=== PATIENT | male | born 1940 | race Caucasian/White ===

== ENCOUNTER → 2017-03-22 | Outpatient (CLI) | payer MEDICARE, BC ==
[~2017-03-22] MED LIST: ASPI1TAB7 PO; BENA25TA3 PO; CITRPOW PO; CITRPOW3 PO; CLEAPOW6 PO; DICL1GEL TOP; DICL1GEL TOPICAL; FINA5TAB2 PO; GABA300C3 PO; GABA300C5 PO; HYDR12.56 PO; HYDR12.57 PO; HYDRO2.5%T TOP; LAC-12LO3 TOPICAL; LANSO15 PO; LATA0.002 EACH EYE; LEVO88TA2 PO; LISI40TA PO; MEDI220T PO; METH750T PO; METH750T2 PO; MIRA33504 PO; MORP1TAB24 PO; MORP60TA20 PO; NEXI40CA PO; NYSTCRE TOP; NYSTCRE29 TOPICAL; OXYC-395 PO; PERC7.5T13 PO; PERI8.6T PO; PREV15CA15 PO; SENN1TAB11 PO; SIMV20TA PO; SYNT88TA PO; TAMS0.4C4 PO; TAMS0.4C67 PO; VENL150C39 PO; VENL75 PO; [UNRECOGNIZED DRUG - CODE] TOP
[2017-03-22 12:13] LABS: AUTOMATED NEUTROPHIL # 2.9 TH/MM3 (1.8-7.7); BASOPHIL % 0.8 % (0.0-2.0); EOSINOPHIL # 0.1 TH/MM3 (0-0.4); HEMATOCRIT 39.5 % (39.0-51.0); HEMO FLAGS DIFF FINAL; LYMPH % 19.9 % (9.0-44.0); LYMPHOCYTE # 0.8 TH/MM3 (1.0-4.8); MEAN CELL VOLUME 90.7 FL (80.0-100.0); MEAN CORPUSCULAR HEMOGLOBIN 30.6 PG (27.0-34.0); MEAN CORPUSCULAR HGB CONC 33.7 % (32.0-36.0); MONO % 7.4 % (0.0-8.0); NEUT % 69.9 % (16.0-70.0); PLATELET COUNT 197 TH/MM3 (150-450); RED BLOOD COUNT 4.36 MIL/MM3 (4.50-5.90); RED CELL DISTRIBUTION WIDTH 13.8 % (11.6-17.2); WHITE BLOOD COUNT 4.2 TH/MM3 (4.0-11.0)
[2017-03-22 12:50] LABS: BLOOD, URINE NEG (NEG); COMMENT (UR) CULT NOT INDICATED; CULTURE IF INDICATED CULT NOT INDICATED; GLUCOSE,URINE NEG (NEG); KETONE, URINE NEG (NEG); MUCUS URINE FEW /lpf (OCC); NITRITE,URINE NEG (NEG); PH, URINE 6.5 (5.0-8.5); URINE COLOR YELLOW (YELLW/STRAW)
--- NOTE | 2017-03-23 10:51 | EKG ---
Date Performed: 03/22/2017 Time Performed: 10:30:27 PTAGE: 76 years EKG: Sinus rhythm NORMAL ECG PREVIOUS TRACING : 03/22/2017 10.29 Compared to prior tracing no significant change DOCTOR: Hilary Myers Interpretating Date/Time 03/23/2017 10:50:31
== END ==
LOC: CPRE 10:04
PROVIDERS: ATTEND Orthopaedic Surgery Orthopaedic Surgery of the Spine
DX: Z01.810 Encounter for preprocedural cardiovascular examination (principal); Z01.812 Encounter for preprocedural laboratory examination; M46.1 Sacroiliitis, not elsewhere classified
CPT/HCPCS: 36415; 81001; 85025; 93005

== ENCOUNTER 2017-04-05 10:36 | Observation (INO) | payer MEDICARE, BC ==
[~2017-04-05] VITALS: Ht 170.2 cm; Wt 92.4 kg
[~2017-04-05 10:36] MED LIST changes: -ASPI1TAB7 PO; -CITRPOW PO; -CLEAPOW6 PO; -DICL1GEL TOP; -GABA300C3 PO; -HYDR12.56 PO; -HYDRO2.5%T TOP; -LANSO15 PO; -METH750T2 PO; -MORP60TA20 PO; -NEXI40CA PO; -NYSTCRE TOP; -OXYC-395 PO; -SENN1TAB11 PO; -SYNT88TA PO; -TAMS0.4C67 PO; -VENL75 PO; -[UNRECOGNIZED DRUG - CODE] TOP
[2017-04-05] MEDS ORDERED: VANCOMYCIN 1000 MG/NS 250 ML (for <70 kg) IV SCH ×2 (11:00)
[2017-04-05] MEDS ORDERED: ceFAZolin 2 GM PREMIX 50 ML IV SCH (11:00)
[2017-04-05] MEDS ORDERED: SODIUM CHLORID 0.9% 500 ML IV PRN (11:00)
[2017-04-05] MEDS ORDERED: LACTATED RINGER'S 1000 ML IV PRN (11:00)
[2017-04-05] MEDS ORDERED: METOPROLOL TARTRATE 25 MG TAB PO PRN (11:00)
[2017-04-05] MEDS ORDERED: POVIDONE IODINE 5% (ANTISEPSIS KIT) 4 APPLICATIONS EACH NARE PRN (11:00)
[2017-04-05] MEDS ORDERED: POVIDONE IODINE 7.5% SCRUB 118 ML BOTTLE TOPICAL SCH (11:00)
[2017-04-05] MEDS ORDERED: CHLORHEXIDINE GLUCONATE 2 % 1 PACK (2 CLOTHS) TOPICAL PRN (11:00)
[2017-04-05] MEDS ORDERED: INSULIN HUMAN REGULAR 1,000 UNITS/10 ML VIAL SQ PRN (11:00)
[2017-04-05 11:20] VITALS: BP 130/67; PULSE 72; RESP 20; TEMP 98.8; O2SAT 94
[2017-04-05] MEDS ORDERED: ONDANSETRON HCL 4 MG/2 ML VIAL IV PUSH ONE (12:00)
[2017-04-05] MEDS ORDERED: PHENYLEPH/NS 1000 MCG/10 ML SYR IV ONE (12:00)
[2017-04-05] MEDS ORDERED: LACTATED RINGER'S 1000 ML INJ 1,000 ML IV ONE (12:00)
[2017-04-05] MEDS ORDERED: ePHEDrine/NS 25 MG/5 ML SYR IV ONE (12:00)
[2017-04-05] MEDS ORDERED: NEOSTIGMINE 3 MG/3 ML SYR IV ONE (12:00)
[2017-04-05] MEDS ORDERED: PROPOFOL 200 MG/20 ML AMP IV ONE (12:00)
[2017-04-05] MEDS ORDERED: FAMOTIDINE 20 MG/2 ML VIAL ONE (12:26)
[2017-04-05] MEDS ORDERED: MIDAZOLAM HCL 2 MG/2 ML VIAL ONE (14:24)
[2017-04-05] MEDS ORDERED: GENTAMICIN SULFATE 80 MG/2 ML VIAL ONE (14:44)
[2017-04-05] MEDS ORDERED: BUPIVACAINE/EPINEPHRINE 0.25% 50 ML VIAL INFIL ONE (16:15)
[2017-04-05] MEDS ORDERED: TEMAZEPAM 15 MG CAP PO PRN (16:45)
[2017-04-05] MEDS ORDERED: MORPHINE SULFATE 8 MG/ML INJ IV PUSH PRN (16:45)
[2017-04-05] MEDS ORDERED: SODIUM CHLORIDE 0.9% FLUSH 5 ML FLUSH IVF PRN (16:45)
[2017-04-05] MEDS ORDERED: ONDANSETRON HCL 4 MG/2 ML VIAL IVP PRN (16:45)
[2017-04-05] MEDS ORDERED: NALOXONE HCL 0.4 MG/ML AMP IV PRN (16:45)
[2017-04-05] MEDS ORDERED: MAGNESIUM HYDROXIDE SUSP 30 ML CUP PO PRN (16:45)
[2017-04-05] MEDS ORDERED: BISACODYL 10 MG SUPP RECTAL PRN (16:45)
[2017-04-05] MEDS ORDERED: oxyCODONE/ACETAMINOPHEN 7.5 MG/325 MG TAB PO PRN (16:45)
[2017-04-05] MEDS ORDERED: ALUMINUM/MAGNESIUM/SIMETH 30 ML CUP PO PRN (16:45)
[2017-04-05] MEDS ORDERED: Post-op Orders (for Pharmacy) MISC XX ONE (16:45)
--- NOTE | 2017-04-05 16:50 | PD.OP ---
cc: Nick Contreras MD Operative Report Date of Surgery: April 05, 2017 Preoperative Diagnosis: Left sacroiliitis Postoperative Diagnosis: Same Procedure: Left sacroiliac joint fusion with instrumentation Anesthesia: Gen. Surgeon: Nick Contreras Rig Hand(s): ISRA Flores Operation and Findings: EBL: 200 cc INDICATIONS: Patient is a 76-year-old male with a significant low back pain syndrome and significant sacroiliitis. Despite conservative care including multiple injections, the patient continued to be painful. He has had successful reduction in pain with isolated sacroiliac joint injections done multiple times. He now presents for surgical treatment. NOTE: Althea Flores PA-C was present for the entire surgical procedure as my news production assistant. In my medical opinion her skill and care was necessary for proper management of this patient. COMPANY: [employer] Primary screw: 60 mm. Secondary screw: 50 mm PROCEDURE: The patient was brought the operating room and anesthetized in the supine position. The patient was positioned prone on a John table. Fluoroscopy was brought in from the opposite side of the table. Inlet view, utlet view and lateral views were taken. Skin markings were prepared. A 1.5 cm incision was made in line with a line from the greater sciatic notch and the cephalad border of the sacrum. We used a starting point that was approximately 1/2-2/3 from the sciatic notch. A pin was then placed across the sacroiliac joint controlling position in the inlet view, outlet view and lateral. The pin was positioned to the edge of the sacroiliac joint and into the sacroiliac joint. A proper tube was utilized. This was then drilled to proper size and a guide tube was fixated to the bone. We used the SImmetry system. We then used a scraper followed by use of a series of cutting devices gaining entrance into the sacroiliac joint and opening and removing cartilaginous material from the sacroiliac joint. Reamings from the drilling was saved and used with demineralized bone matrix. We used the proper size reamers which were deployed to their fullest extent. We then placed bone graft using the bone graft placement device. And then advanced the pin into the ilium. This was measured carefully for proper length screw. We used the drill to go past the other cortex of the sacroiliac joint. We used a primary screw first placing into good position within the sacral ala and in the region of the S1 vertebral body. Position was very satisfactory A second pin was advanced placing it cephalad over the S1 screw at an oblique angle.. This was checked in the inlet view outlet view and lateral. This was drilled and measured properly for a proper length secondary screw. The secondary screw was positioned without complication. Intraoperative x-rays were obtained. Alignment was satisfactory. The wound was irrigated copiously with antibiotic irrigation. The fascia was closed with interrupted Vicryl suture skin and subcutaneous tissue with 3-0 Vicryl suture followed by Dermabond. The sponge count needle counts and sponge counts were all correct. The patient tolerated the procedure well as taken to the recovery room in satisfactory condition. FINDINGS: Moderate sacroiliac space on x-rays. Fixation appeared be very satisfactory. No complication was appreciated. Nick Contreras MD April 05, 2017 16:50
[2017-04-05] MEDS ORDERED: OXYC-395 PO (16:55)
[2017-04-05] MEDS ORDERED: fentaNYL CITRATE 250 MCG/5 ML AMP ONE (16:59)
[2017-04-05] MEDS ORDERED: LACTATED RINGER'S 1000 ML INJ 1,000 ML IV SCH (17:00)
--- NOTE | 2017-04-05 17:00 | RADRPT ---
EXAM DATE/TIME: 04/05/2017 16:15 [facility] COMPARISON: No previous studies available for comparison. INDICATIONS : Left SI joint fusion. MEDICAL HISTORY : None. SURGICAL HISTORY : Left hip replacement. ENCOUNTER: Initial ACUITY: 1 day PAIN SCORE: Non-responsive. LOCATION: Left SI joint FINDINGS: 3 intraoperative spot images of the right sacroiliac joint. 2 screws are seen across the right sacroi liac joint. CONCLUSION: [address] across the right sacroiliac joint. Dangelo Carranza MD on April 05, 2017 at 16:57 Board Certified Radiologist. This report was verified electronically.
[2017-04-05] MEDS ORDERED: *morphine SULFATE 8 MG/ML PERIprocedure ONLY ONE (17:03)
[2017-04-05] MEDS ORDERED: diphenhydrAMINE HCL 25 MG CAP PO PRN (17:30)
[2017-04-05] MEDS: MORPHINE SULFATE 30 MG/30 ML PCA IV SCH (17:34)
[2017-04-05] MEDS: GABAPENTIN 300 MG CAP PO SCH (18:40)
[2017-04-05 20:00] VITALS: BP 140/66; PULSE 90; RESP 19; TEMP 96.8; O2SAT 92
[2017-04-05 20:01] VITALS: BP 127/59; PULSE 71; RESP 18; TEMP 95.7; O2SAT 96
[2017-04-05 20:49] VITALS: BP 140/66; PULSE 90; RESP 19; TEMP 96.8; O2SAT 92
[2017-04-05] MEDS ORDERED: TAMSULOSIN HCL 0.4 MG CAP PO SCH (21:00)
[2017-04-05] MEDS ORDERED: LATANOPROST 0.005% OPHT SOLN 2.5 ML BTL EACH EYE SCH (21:00)
[2017-04-05] MEDS: SODIUM CHLORIDE 0.9% FLUSH 5 ML FLUSH IVF SCH (21:00)
[2017-04-05] MEDS: PCA - TOTAL MG MORPHINE DELIVERED PER SHIFT SCH (21:05)
[2017-04-05] MEDS: MORPHINE SULFATE 15 MG CONTROLLED RELEASE TAB PO SCH (21:05)
[2017-04-05] MEDS: METHOCARBAMOL 500 MG TAB PO SCH (21:06)
[2017-04-06 00:01] VITALS: BP 119/55; PULSE 98; RESP 18; TEMP 98.5; O2SAT 94
[2017-04-06] MEDS: PCA - TOTAL MG MORPHINE DELIVERED PER SHIFT SCH ×2 (03:24→14:00)
[2017-04-06] MEDS: MORPHINE SULFATE 30 MG/30 ML PCA IV SCH (03:27)
[2017-04-06 03:47] VITALS: BP 114/54; PULSE 91; RESP 18; TEMP 97.7; O2SAT 94
[2017-04-06] MEDS ORDERED: LEVOTHYROXINE SODIUM 88 MCG TAB PO SCH (06:00)
[2017-04-06] MEDS: METHOCARBAMOL 500 MG TAB PO SCH ×2 (07:31→12:20)
[2017-04-06] MEDS: MORPHINE SULFATE 15 MG CONTROLLED RELEASE TAB PO SCH (07:32)
[2017-04-06] MEDS: GABAPENTIN 300 MG CAP PO SCH ×2 (07:33→12:19)
[2017-04-06 07:48] VITALS: BP 116/66; PULSE 90; RESP 18; TEMP 98.9; O2SAT 92
[2017-04-06] MEDS ORDERED: PANTOPRAZOLE SOD 20 MG DELAYED RELEASE TAB PO SCH (09:00)
[2017-04-06] MEDS: SODIUM CHLORIDE 0.9% FLUSH 5 ML FLUSH IVF SCH (09:00)
[2017-04-06] MEDS ORDERED: DOCUSATE SODIUM 50 MG/SENNA 8.6 MG TAB PO SCH (09:00)
[2017-04-06] MEDS ORDERED: HYDROCHLOROTHIAZIDE 12.5 MG CAP PO SCH (09:00)
[2017-04-06] MEDS ORDERED: LISINOPRIL 20 MG TAB PO SCH (09:00)
[2017-04-06] MEDS ORDERED: VENLAFAXINE HCL XR 75 MG CAP PO SCH (09:00)
[2017-04-06] MEDS ORDERED: FINASTERIDE 5 MG TAB PO SCH (09:00)
[2017-04-06] MEDS ORDERED: PRAVASTATIN SOD 40 MG TAB PO SCH (09:00)
--- NOTE | 2017-04-06 10:19 | HHI.DCPOC ---
Discharge Care Plan Diagnosis: (1) Sacroiliac inflammation (2) Sacroiliac joint dysfunction of right side Your Health Problems Are: Incision/Drains Swelling Chronic Pain Goals to Promote Your Health * To prevent worsening of your condition and complications * To maintain your health at the optimal level Directions to Meet Your Goals Take your medications as prescribed Follow your dietary instruction Follow activity as directed Keep your appointments as scheduled Take your immunizations and boosters as scheduled If your symptoms worsen call your PCP, if no PCP go to Urgent Care Center or Emergency Room Smoking is Dangerous to Your Health. Avoid second hand smoke Call the 24-hour hour crisis hotline for domestic abuse at Eve Lozano April 06, 2017 10:19
--- NOTE | 2017-04-06 10:20 | HHI.DS ---
Discharge Summary Admission Date April 05, 2017 at 17:20 Discharge Date: April 06, 2017 Admitting Diagnosis see below Diagnosis: (1) Sacroiliac inflammation Diagnosis: Principal Procedures Left sacroiliiac joint fusion with Zyga bone screws, bone graft. Brief History This is a 76 year old male patient with a long history of low back. Orthopaedic evaluation was sought out. Imaging studies were reviewed. He was found to have significant pain about the sacroiliiac joints. Diagnostic injections were ordered and he was able to get substantial relief but unfortunately only for a short period of time. Surgical treatment was recommended in the form of left sacroiliiac joint fusion. He presents for the above procedure. Hospital Course Surgical treatment was performed on the day of admission without complication. He recovered well in PACU and was transferred to the orthopedic floor. Pain was controlled with IV and oral medications in addition to chronic pain medications that had been prescribed by his pain management physician. He was educated to be toe-touch weightbearing on the left and was compliant with that instruction. After 1 day he was found to be stable and discharged home with instructions to continue limited weightbearing and to pursue pain management with his previous physician. Pt Condition on Discharge: Stable Discharge Disposition: Discharge Home Discharge Instructions Diet Instructions: As Tolerated, No Restrictions, High Fiber Diet Activities You Can Perform: Toe Touch Weight Bearing Activities to Avoid: Strenuous Activity Additional Activity Instruc.: TTWBing left LE, walker assist. New Medications: Oxycodone (Oxycodone) 10 Mg Tab 10 MG PO Q4H PRN PAIN #40 Ref 0 TAB Continued Medications: Diclofenac Topical (Voltaren Topical) 1% Gel 1 APPLIC TOPICAL QID Pain Management #100 Ref 0 GM Diphenhydramine (Benadryl Allergy) 25 Mg Tab 25 MG PO HS PRN INSOMNIA Ref 0 TAB Finasteride (Finasteride) 5 Mg Tab 5 MG PO DAILY Do not crush. Manage Prostate Problems #30 Ref 0 TAB Gabapentin (Gabapentin) 300 Mg Cap 300 MG PO TID #90 Ref 0 CAP Hydrochlorothiazide (Hydrochlorothiazide) 12.5 Mg Cap 12.5 MG PO DAILY #30 Ref 0 CAP Lactic Acid (Ammonium Lactate) (Lac-Hydrin) 12% Lotn 1 APPLIC TOPICAL BID PRN FEET #225 Ref 0 ML Lansoprazole (Prevacid) 15 Mg Capdr 15 MG PO DAILY Ref 0 CAP Latanoprost Opth Drops (Latanoprost Opth Drops) 0.005% Drops 1 DROP EACH EYE HS Refrigerate until opened. Glaucoma #2.5 Ref 0 ML Levothyroxine (Levothyroxine) 88 Mcg Tab 88 MCG PO DAILY Thyroid #30 Ref 0 TAB Lisinopril (Lisinopril) 40 Mg Tab 40 MG PO DAILY Blood Pressure Management #30 Ref 0 TAB Methocarbamol (Methocarbamol) 750 Mg Tab 750 MG PO QID Muscle Spasm #120 Ref 0 TAB Methylcellulose Powder (Citrucel Fiber Laxative Powder) 15 Ml Pow 15 ML PO DAILY Mix in full glass water Prevent Constipation #1 Ref 0 CONTAINER Morphine ER (Morphine ER) 15 Mg Tab 15 MG PO BID Pain Management Ref 0 TAB Naproxen Sodium (Naproxen Sodium) 220 Mg Tab 220 MG PO BID PRN Pain Management Ref 0 TAB Nystatin-Triamcinolone (Nystatin-Triamcinolone) 100,000-0.1 Unit/Gm Cream 1 APPLIC TOPICAL BID PRN ITCHING #15 Ref 0 GM Oxycodone-Acetaminophen (Percocet) 7.5-325 mg Tab 1 TAB PO Q4H PRN PAIN Ref 0 TAB Polyethylene Glycol 3350 Powder (Miralax Powder) 17 Gm Powd 17 GM PO DAILY Mix and dissolve one measuring cap-ful (17 grams) in water or juice. Constipation #1 Ref 0 BOTTLE Sennosides-Docusate Sodium (Radha-Colace) 8.6-50 Mg Tab 3 TAB PO DAILY Constipation #60 Ref 0 TAB Simvastatin (Simvastatin) 20 Mg Tab 20 MG PO DAILY Cholesterol Management #30 Ref 0 TAB Tamsulosin (Tamsulosin) 0.4 Mg Cap 0.4 MG PO HS Manage Prostate Problems #30 Ref 0 CAP Venlafaxine ER 24 HR (Venlafaxine ER 24 HR) 150 Mg Cap 150 MG PO DAILY #30 Ref 0 CAP Eve Lozano April 06, 2017 10:20
[2017-04-06 12:00] VITALS: BP 113/62; PULSE 88; RESP 18; TEMP 98.6; O2SAT 94
--- NOTE | 2017-04-06 12:58 | PD.ORT.PN ---
Subjective Subjective Remarks He has moderate buttock and thigh pain. He does add that he is having some cramping in the calves, worse on the left. He did not get much sleep last night. He has no other complaints. Questions about surgery. No new chest pain or SOB. Objective Vitals Vital Signs Date Time Temp Pulse Resp B/P Pulse Ox O2 Delivery O2 Flow Rate FiO2 04/06/17 09:50 16 04/06/17 07:48 98.9 90 18 116/66 92 04/06/17 03:47 97.7 91 18 114/54 94 04/06/17 03:24 16 04/06/17 00:01 98.5 98 18 119/55 94 04/05/17 21:05 16 04/05/17 20:49 96.8 90 19 140/66 92 04/05/17 20:09 Nasal Cannula 2.00 04/05/17 17:45 98.0 75 14 166/79 97 Nasal Cannula 2 04/05/17 17:34 14 04/05/17 17:30 83 14 162/83 98 Nasal Cannula 2 04/05/17 17:15 84 14 166/82 96 Nasal Cannula 2 04/05/17 17:00 98.0 91 14 156/74 94 Nasal Cannula 2 I/O 04/05/17 04/05/17 04/05/17 04/06/17 04/06/17 04/06/17 07:00 15:00 23:00 07:00 15:00 23:00 Intake Total 2240 ml 360 ml Output Total 300 ml 750 ml Balance 1940 ml -390 ml Intake Oral 480 ml 360 ml IV Total 360 ml Other 1400 ml Output Urine Total 100 ml 750 ml Estimated Blood Loss 200 ml # Bowel Movements 0 0 Procedures Left sacroiliiac joint fusion with Zyga bone screws, bone graft. Objective Remarks Laying in bed, NAD VSS LLE Left buttock/hip dressing intact, no drainage, mild swelling, minimal ecchymosis thigh and calf both supple, neg homans sign on left or right +motor at/ehl, +sens, +nvi Assessment & Plan Ortho Post Op Day #: 1 Problem List: (1) Sacroiliac inflammation Assessment and Plan pod#1 s/p Left SI joint fusion Ortho stable. Ok to d/c home today. No need for HHC Continue TTWBing LLE. use of walker. Dry dressing changes daily. Ok to shower after 48 hours. PO pain meds per pain management physician. He is under contract with them. Though he has some calf pain, homans is negative, calf is supple, and motor exam is normal. F/U in 2 weeks as scheduled. Eve Lozano April 06, 2017 12:58
[2017-04-06 13:15] VITALS: RESP 16
[2017-04-06] MEDS ORDERED: DOCUSATE SODIUM 100 MG CAP PO SCH (21:00)
[2017-04-06] MEDS ORDERED: MULTIVITAMINS/MINERALS THERAPEUTIC TAB PO SCH (21:00)
== END 2017-04-06 16:01 | disposition home or self-care (01) ==
LOC: HSDC 10:36 → HSDI 17:20 → INTOOBSV 17:20 → N06A 18:05 → UNDODISIN 04-06 16:01
PROVIDERS: ADMIT Orthopaedic Surgery Orthopaedic Surgery of the Spine; ATTEND Orthopaedic Surgery Orthopaedic Surgery of the Spine
DX: M46.1 Sacroiliitis, not elsewhere classified (principal); I10 Essential (primary) hypertension; E78.5 Hyperlipidemia, unspecified; K21.9 Gastro-esophageal reflux disease without esophagitis; E03.9 Hypothyroidism, unspecified; Z91.013 Allergy to seafood; Z96.642 Presence of left artificial hip joint
CPT/HCPCS: 27280; 72200; 76000; 94150; 97162; C1713; G0378; J0690; J1580; J2250; J2270; J2370; J2405; J2710; J3010; J3370; J7050; J7120; G8987-GP; G8988-GP

== ENCOUNTER 2017-10-31 14:11 | Day surgery (SDC) | payer MEDICARE, BC ==
[~2017-10-31] VITALS: Ht 171.4 cm; Wt 94.3 kg
[~2017-10-31 14:11] MED LIST changes: +DEXAMETHASONE SOD PHOS 4 MG/ML VIAL IV ONE; +GLYCOPYRROLATE 1 MG/5 ML SYRINGE IV PUSH ONE; +KETOROLAC TROMETHAMINE 30 MG/ML (IVP) VIAL IV PUSH ONE; +LIDOCAINE HCL 1% PF 5 ML SYRINGE OTHER ONE; +MIDAZOLAM HCL 2 MG/2 ML VIAL IV ONE; +NEOSTIGMINE 3 MG/3 ML SYR IV ONE; +ONDANSETRON HCL 4 MG/2 ML VIAL IV PUSH ONE; +OXYC-395 PO; -PREV15CA15 PO; +PREV15CA20 PO; +PROPOFOL 200 MG/20 ML AMP IV ONE; +ROCURONIUM INJ 50 MG/5 ML SYRINGE IV PUSH ONE; +SODIUM CHLORIDE 0.9% 20 ML VIAL IV ONE; +ePHEDrine/NS 25 MG/5 ML SYR IV ONE
[2017-10-31] MEDS ORDERED: SODIUM CHLORID 0.9% 500 ML IV PRN (15:15)
[2017-10-31] MEDS ORDERED: METOPROLOL TARTRATE 25 MG TAB PO PRN (15:15)
[2017-10-31] MEDS ORDERED: ceFAZolin 2 GM PREMIX 50 ML IV SCH (15:15)
[2017-10-31] MEDS ORDERED: LACTATED RINGER'S 1000 ML IV PRN (15:15)
[2017-10-31] MEDS ORDERED: POVIDONE IODINE 5% (ANTISEPSIS KIT) 4 APPLICATIONS EACH NARE PRN (15:15)
[2017-10-31] MEDS ORDERED: CHLORHEXIDINE GLUCONATE 2 % 1 PACK (2 CLOTHS) TOPICAL PRN (15:15)
[2017-10-31] MEDS ORDERED: BENA25CA4 PO (15:45)
[2017-10-31] MEDS ORDERED: DOCU8.6T PO (15:45)
[2017-10-31] MEDS ORDERED: AMMO12CR4 TOP (15:45)
[2017-10-31] MEDS ORDERED: MIRA3350 PO (15:45)
[2017-10-31] MEDS ORDERED: VOLT1GEL16 TOPICAL (15:45)
[2017-10-31] MEDS ORDERED: BUPIVACAINE/EPINEPHRINE 0.5% PF 30 ML VIAL ONE (15:51)
[2017-10-31] MEDS ORDERED: LIDOCAINE HCL 1% 50 ML VIAL ONE (15:51)
[2017-10-31] MEDS ORDERED: LIDOCAINE 1%/EPINEPHrine 1:100,000 SOLN 20 ML VIAL ONE (15:52)
[2017-10-31] MEDS ORDERED: ACETAMINOPHEN 1000 MG/100 ML 100 ML IV ONE (16:13)
[2017-10-31] MEDS ORDERED: BUPIVACAINE/EPINEPHRINE 0.25% PF 10 ML VIAL INFIL ONE (17:14)
[2017-10-31] MEDS ORDERED: BACITRACIN TOP OINT 15 GM TUBE ONE (17:56)
[2017-10-31] MEDS ORDERED: DO NOT ADM ANY ANTICOAGULANT DRUGS PRN (18:30)
[2017-10-31] MEDS ORDERED: MORPHINE SULFATE 4 MG/ML INJ IV PRN (19:00)
[2017-10-31] MEDS ORDERED: oxyCODONE/ACETAMINOPHEN 10 MG/325 MG TAB PO PRN (19:00)
--- NOTE | 2017-10-31 19:13 | TN ---
cc: LIMA PACK M.D. DATE OF SURGERY 10/31/2017 PREOPERATIVE DIAGNOSES 1. Recurrent umbilical hernia. 2. 4 cm left axillary mass. POSTOPERATIVE DIAGNOSES 1. Recurrent umbilical hernia. 2. 4 cm left axillary mass. 3. Probable lipoma. PROCEDURE PERFORMED 1. Umbilical hernia repair with mesh. 2. Excision 4 cm soft tissue mass left axilla. SURGEON Lima Pack MD ANESTHESIA General endotracheal COMPLICATIONS None. INDICATION FOR PROCEDURE Mr. Vergara is a pleasant 77-year-old gentleman who is noted have a symptomatic enlarging umbilical hernia. He had previously undergone umbilical hernia repair by another surgeon without mesh. He developed a recurrence. He was experiencing some pain and symptoms with the umbilical hernia. He also is known to have a left axillary mass which he felt was enlarging and causing him symptoms as well. The patient was seen and evaluated in the office and offered elective umbilical hernia repair with mesh as well as excision of 4 cm left axillary mass. Risks and benefits of both procedures were discussed with him and he was agreeable. DETAILS OF THE PROCEDURE The patient was identified, brought to the operating room and placed supine on the operating table. After adequate general endotracheal anesthesia was achieved, the abdomen and left axilla were prepped and draped in standard surgical fashion. Infraumbilical space was anesthetized with 0.25% Marcaine. Infraumbilical incision was made. Dissection was carried down through subcutaneous tissue identifying the umbilical hernia sac. The umbilical hernia sac was carefully dissected off the umbilical stalk. Sac was then followed down to the fascial defect. The fascia was dissected circumferentially identifying the edges. Attention was now directed to repair. Repair was accomplished using a two-layer technique. First the fascia was reapproximated primarily using a 0 Prolene suture interrupted x4. Once we did this, the fascia was cleaned off circumferentially about a centimeter in all directions. Four 2-0 Prolene stay sutures were placed in the four corners. An onlay mesh of polypropylene was then placed. It was secured in the four corners make sure there was generous overlap of fascia in all directions. Midpoint of the superior and inferior borders of the mesh were also secured with a 2-0 Prolene suture. Both of the defects were completely covered in two layers. 0.25% Marcaine was injected into the abdominal wall fascia. Wound was copiously irrigated with normal saline solution. Umbilical stalk was then tacked down to the abdominal wall using a 3-0 Vicryl suture. Subcutaneous tissue was closed with 3-0 Vicryl. Skin was closed with 4-0 Vicryl. Sterile dressings were applied. Attention was now directed to the left axilla. 0.25% Marcaine was injected into the skin and subcutaneous tissue directly overlying the axillary mass which had been marked in the preoperative holding area. Transverse incision was made. Immediately we encountered an encapsulated fatty mass which was dissected from surrounding tissue using blunt and electrocautery dissection. Mass was excised in toto with care not to violate the capsule. The mass was sent to pathology for analysis. Wound was irrigated with normal saline solution. Bleeding points were controlled with electrocautery Bovie. Wound was then closed in two layers using a 3-0 and 4-0 Vicryl. Sterile dressings were applied. The patient was awakened, brought to recovery in stable condition. MD KAMINI Quinones/DODIE /6:15 PM /6:48 PM
[2017-10-31] MEDS ORDERED: ONDANSETRON HCL 4 MG/2 ML VIAL IV PUSH PRN (19:15)
[2017-10-31 20:00] VITALS: BP 151/78; PULSE 89; RESP 16; TEMP 98; O2SAT 97
== END 2017-10-31 20:13 | disposition home or self-care (01) ==
LOC: HSDC 14:11
PROVIDERS: ATTEND Surgery Trauma Surgery
DX: K42.9 Umbilical hernia without obstruction or gangrene (principal); D17.1 Benign lipomatous neoplasm of skin and subcutaneous tissue of trunk; I10 Essential (primary) hypertension; G47.30 Sleep apnea, unspecified
CPT/HCPCS: 00750; 11406; 49585; 88304; C1781; J0131; J1100; J1885; J2250; J2405; J2710; J3010; 88307